=== PATIENT | female | born 1955 | race Caucasian/White ===

== ENCOUNTER 2016-04-26 11:13 | Emergency (ER) | payer SELFPAY ==
[~2016-04-26 11:13] MED LIST: ANAS1TAB PO; ASPI81TA2 PO; HYDR12.58 PO; MELO-150 PO; PARO40TA2 PO
[2016-04-26 11:54] VITALS: BP 146/84
[2016-04-26] MEDS ORDERED: KETOROLAC TROMETHAMINE 60 MG/2 ML SYRINGE. IM ONE (12:30)
[2016-04-26] MEDS ORDERED: DEXAMETHASONE SOD PHOS 20 MG/5 ML VIAL. IM ONE (12:30)
[2016-04-26] MEDS ORDERED: CYCL10TA2 PO (12:50)
[2016-04-26] MEDS ORDERED: METH4TAB2 PO (12:50)
[2016-04-26] MEDS ORDERED: HYDR-971 PO (12:50)
[2016-04-26] MEDS ORDERED: NAPR375T3 PO (12:50)
--- NOTE | 2016-04-26 12:51 | PHYS DOC ---
Past Medical History Past Medical History: Hypertension Past Surgical History: Hysterectomy Additional Past Surgical Histo: right mastectomy r/o cancer Alcohol Use: Rarely Drug Use: None Adult General Chief Complaint Chief Complaint: LOWER BACK PAIN OR INJURY HPI HPI Patient is a 60 year old female with history of hypertension who presents with moderate right low back pain radiating into the right lower extremity that began 2 weeks ago. Patient states she has tried exercise, naproxen, Aleve, and ibuprofen, and other remedies with no relief. Patient denies any injury. Denies any loss of bowel bladder function. She states she had a similar event one year ago and was able to get rid of it with anti-inflammatories. Review of Systems Review of Systems Constitutional: Denies fever or chills [] Musculoskeletal: Right low back pain radiating into the right lower extremity Integument: Denies rash or skin lesions [] Neurologic: Denies headache, focal weakness or sensory changes [] Endocrine: Denies polyuria or polydipsia [] Current Medications Current Medications Current Medications Medications (Trade) Dose Ordered Sig/Tom Start Time Stop Time Status Last Admin Dose Admin Dexamethasone Sodium Phosphate (Decadron) 10 mg 1X ONCE 04/26/16 12:30 04/26/16 12:33 DC Ketorolac Tromethamine (Toradol Im) 60 mg 1X ONCE 04/26/16 12:30 04/26/16 12:33 DC Allergies Allergies Allergies Coded Allergies Type Severity Reaction Last Updated Verified morphine Allergy Mild Nausea 02/20/15 Yes Physical Exam Physical Exam Constitutional: Well developed, well nourished, no acute distress, non-toxic appearance. [] Skin: Warm, dry, no erythema, no rash. [] Back: Patient is in standing position for comfort, appears to favor the right lower extremity. Tenderness diffusely on on paraspinal muscles of the right lower lumbar region, no midline tenderness to the lumbar spine. No CVA tenderness. [] Extremities: No tenderness, no cyanosis, no clubbing, ROM intact, no edema. [] Neurologic: Alert and oriented X 3, normal motor function, normal sensory function, no focal deficits noted. [] Psychologic: Affect normal, judgement normal, mood normal. [] Current Patient Data Vital Signs Vital Signs Date Time Temp Pulse Resp B/P Pulse Ox O2 Delivery O2 Flow Rate FiO2 04/26/16 11:54 97.8 104 18 96 Room Air 97.8 EKG EKG [] Radiology/Procedures Radiology/Procedures [] Course & Med Decision Making Course & Med Decision Making Pertinent Labs and Imaging studies reviewed. (See chart for details) Patient is in the ED with sciatic nerve pain. She has tried [id number]-gay-[id number] remedies with no relief including exercise. She was given Toradol and Decadron in the ED. She was discharged with Flexeril, Medrol Dosepak, and a very short supply of [place] for severe pain. She has a PCP,i recommended following up next week. Dragon Disclaimer Dragon Disclaimer This electronic medical record was generated, in whole or in part, using a voice recognition dictation system. Departure Departure Impression: Primary Impression: Sciatica of right side Additional Impression: Low back pain Disposition: HOME, SELF-CARE Condition: STABLE Referrals: NABIL LOCKETT MD (PCP) Follow-up with your own doctor in the next 7 days Patient Instructions: Back Pain, Adult, Sciatica, [id number] Additional Instructions: You were seen for acute right low back pain with sciatica. Exercise as tolerated. You can apply heat or ice to your low back. Your were sent home with medications, use them as prescribed. Come back to the emergency room if symptoms worsen otherwise follow-up with your doctor in one week. Come back to the emergency room if you develop any loss of bowel or bladder function. Scripts Methylprednisolone (Medrol)4 Mg Tab.ds.pk1 Pkg PO UD #1 PKG Prov:POLLY JUSTICE CARLYN 04/26/16 Naproxen 375 Mg Tablet1 Tab PO BID #20 TAB Ref 5 Prov:POLLY JUSTICE CARLYN 04/26/16 Cyclobenzaprine Hcl 10 Mg Tablet1 Tab PO TID #30 TAB Prov:POLLY JUSTICE CARLYN 04/26/16 Hydrocodone/Apap 5-325 ([place] 5-325 Tablet)1 Each Tablet1-2 Tab PO Q4-6HRS #20 TAB Prov:POLLY JUSTICE CARLYN 04/26/16 Problem Qualifiers Additional Impression: Low back pain Chronicity: acute Back pain laterality: right Sciatica presence: with sciatica Sciatica laterality: sciatica of right side Qualified Code: M54.41 - Lumbago with sciatica, right side POLLY JUSTICE CARLYN Apr 26, 2016 12:51
== END 2016-04-26 13:03 | disposition home or self-care (01) ==
LOC: ER 11:13
DX: M54.41 Lumbago with sciatica, right side (principal); I10 Essential (primary) hypertension; Z90.710 Acquired absence of both cervix and uterus; Z90.11 Acquired absence of right breast and nipple; Z88.5 Allergy status to narcotic agent
CPT/HCPCS: 96372; 99284; J1100; J1885